=== PATIENT | male | born 1975 | race African-American/Black ===

== ENCOUNTER 2024-09-15 09:20 | Emergency (ER) | payer OTHER ==
[2024-09-15 09:26] VITALS: BP 139/84; PULSE 105; RESP 18; TEMP 97.7; BMI 44.6
[2024-09-15] MEDS ORDERED: CycloBENZAprine HCL 10 MG TABLET (FP) ONE (10:00)
[2024-09-15] MEDS ORDERED: LIDOCAINE 4% PATCH TP ONE ×2 (10:00→10:33)
[2024-09-15] MEDS ORDERED: IBUPROFEN 400 MG TABLET (FP) PO ONE (10:00)
[2024-09-15] MEDS: CycloBENZAprine HCL 10 MG TABLET (FP) PO ONE (10:04)
[2024-09-15] MEDS: LIDOCAINE 5% TOPICAL PATCH TP ONE (10:04)
[2024-09-15] MEDS: IBUPROFEN 400 MG TABLET (FP) PO ONE (10:04)
[2024-09-15] MEDS ORDERED: LIDOCAINE PATCH REMOVAL MC ONE (22:00)
== END 2024-09-15 11:36 | disposition home or self-care (01) ==
LOC: JERFT 09:20
DX: M79.651 Pain in right thigh (principal); R00.0 Tachycardia, unspecified
CPT/HCPCS: 93971-TC; 99284-25